=== PATIENT | female | born 2000 | race Hispanic/Latino ===

== ENCOUNTER 2021-04-19 00:20 | Emergency (ER) | payer SELFPAY ==
[2021-04-19] MEDS ORDERED: Morphine 4 MG/ML VIAL ONE (01:32)
[2021-04-19] MEDS ORDERED: Piperacillin/Tazobactam 4.5 GM VIAL ONE (01:54)
== END 2021-04-19 05:23 | disposition home or self-care (01) ==
LOC: CSHERS 00:20
DX: O99.611 Diseases of the digestive system complicating pregnancy, first trimester (principal); K82.8 Other specified diseases of gallbladder; O99.891 Other specified diseases and conditions complicating pregnancy; R10.9 Unspecified abdominal pain; Z3A.14 14 weeks gestation of pregnancy
CPT/HCPCS: 72195; 76705; 76815; 96365; 96366; 96375; J2270; J2543

== ENCOUNTER 2021-06-15 14:24 | Outpatient (CLI) | payer BC, OTHER | END 2021-06-15 14:25 | disposition home or self-care (01) | LOC: CSHULT 14:24 | PROVIDERS: ATTEND Family Medicine | DX: Z34.02 Encounter for supervision of normal first pregnancy, second trimester (principal); Z3A.21 21 weeks gestation of pregnancy | CPT/HCPCS: 76805 ==

== ENCOUNTER 2025-04-26 20:38 | Day surgery (SDC) | payer MEDICAID ==
[2025-04-26] MEDS ORDERED: Acetaminophen 500 MG TAB PO SCH (21:00)
[2025-04-26 21:03] VITALS: BMI 27.6
[2025-04-26] MEDS: Acetaminophen 500 MG TAB PO SCH (21:33)
[2025-04-26 22:19] LABS: Influenza A by NAA DETECTED (NotDetected); Influenza B by NAA Not Detected (NotDetected); RSV by NAA DETECTED (NotDetected); SARS-CoV-2 NAA Rapid Test Not Detected (NotDetected)
[2025-04-26 23:09] LABS: Glucose, Urine (Dipstick) Normal (Negative); Leukocyte Negative (Negative); Protein, Urine (Dipstick) Negative (Neg-Trace); RBC/HPF None Seen HPF (0-3); Specific Gravity, Urine 1.010 (1.005-1.030)
[2025-04-26 23:10] LABS: Bacteria/HPF Rare-Few HPF (None Seen); CAUTI Indications for Culture Pregnancy; WBC/HPF 0-3 HPF (0-3)
[2025-04-26 23:11] LABS: Urine Culture Reflex Yes Yes
== END 2025-04-26 23:50 | disposition home or self-care (01) ==
LOC: CSHLD/OP 20:38
PROVIDERS: ATTEND Family Medicine
DX: O99.891 Other specified diseases and conditions complicating pregnancy (principal); R50.9 Fever, unspecified; R05.9 Cough, unspecified; O99.282 Endocrine, nutritional and metabolic diseases complicating pregnancy, second trimester; E86.0 Dehydration; Z3A.27 27 weeks gestation of pregnancy
CPT/HCPCS: 81001; 87086; 87637; 99284